=== PATIENT | female | born 1970 | race Asian ===

== ENCOUNTER 2020-01-27 01:23 | Emergency (ER) | payer MEDICAID ==
[~2020-01-27] VITALS: Ht 154.9 cm; Wt 72.6 kg
[2020-01-27 01:30] VITALS: BP 138/76
--- NOTE | 2020-01-27 01:37 | Emergency Room Report ---
History of Present Illness General Chief Complaint: Abdominal Pain Source: Patient Present Illness HPI This is a 49-year-old female with history of bipolar/anxiety and panic attack. She was recently in a psych facility and transferred to [facility] inpatient psychiatric facility. She presents with chief complaint of panic attack and abdominal pain. Said that she is unable to sleep for the last 2 days. Said that she wakes up frequently feeling she cannot breathe. She had the same problem and was admitted to the hospital a couple weeks ago. She also complained of epigastric pain and felt bloating. No fever chills but no nausea no vomiting. No diarrhea. Pain is 8 out of 10. Denies any trauma. No urinary complaint. Allergies: Coded Allergies: No Known Allergies (Unverified , 01/27/20) COVID-19 Screening Contact w/high risk pt: No Experienced COVID-19 symptoms?: No COVID-19 Testing performed PHLEBOTOMY MANAGER: No Patient History Past Medical History: see triage record, psych hx Past Surgical History: other Pertinent Family History: none Social History: Denies: smoking Last Menstrual Period: 12/2019 Now: No Immunizations: other Reviewed Nursing Documentation: PMH: Agreed; PSxH: Agreed Nursing Documentation-PMH Past Medical History: No History, Except For Review of Systems Eye: Denies: eye pain, blurred vision ENT: Denies: ear pain, nose congestion, throat swelling Respiratory: Reports: shortness of breath; Denies: cough Cardiovascular: Denies: chest pain, palpitations Gastrointestinal: Reports: abdominal pain; Denies: diarrhea, nausea, vomiting Musculoskeletal: Denies: back pain, joint pain Skin: Denies: rash Neurological: Denies: headache, numbness Endocrine: Denies: increased thirst, increased urine Hematologic/Lymphatic: Denies: easy bruising All Other Systems: negative except mentioned in HPI Physical Exam Vital Signs Date Time Temp Pulse Resp B/P (MAP) Pulse Ox O2 Delivery O2 Flow Rate FiO2 01/27/20 01:24 97.0 120 25 143/80 (101) 100 Room Air Vitals with tachycardia. Repeat heart rate 100 Sp02 EP Interpretation: reviewed, normal General Appearance: well appearing, no apparent distress, alert Head: normocephalic, atraumatic Eyes: bilateral eye PERRL, bilateral eye EOMI ENT: hearing grossly normal, normal pharynx Neck: full range of motion, supple, no meningismus Respiratory: chest non-tender, lungs clear, normal breath sounds Cardiovascular #1: regular rate, rhythm, no murmur Gastrointestinal: normal bowel sounds, no mass, no organomegaly, no bruit, non- distended, tenderness - Epigastric Musculoskeletal: back normal, normal range of motion, gait/station normal Psychiatric: anxious Medical Decision Making Diagnostic Impression: Primary Impression: Anxiety Additional Impressions: Abdominal pain Qualified Codes: R10.13 - Epigastric pain Pancreatitis, acute Qualified Codes: K85.90 - Acute pancreatitis without necrosis or infection, unspecified ER Course Patient presents with abdominal pain and appeared to be very anxious. She is sleeping comfortably after receiving Ativan. Abdominal exam is mostly epigastric area. She complained of bloating. When she is sleeping, when I palpate her abdomen she did not have any pain. When she woke up she still complained of pain. Her LFTs and lipase are normal. CT scan showed mild pancreatitis. No evidence of any acute abdomen or obstruction. Will discharge home. CT/MRI/US Diagnostic Results CT/MRI/US Diagnostic Results : Imaging Test Ordered: CT abdomen and pelvis Impression Read by radiologist. Mild edema and hazy stranding along the pancreatic head. Cardiomegaly. Last Vital Signs Date Time Temp Pulse Resp B/P (MAP) Pulse Ox O2 Delivery O2 Flow Rate FiO2 01/27/20 01:24 97.0 120 25 143/80 (101) 100 Room Air Status: improved Disposition: HOME, SELF-CARE Condition: Stable Scripts Ibuprofen* (MOTRIN*) 600 Mg Tablet 600 MG ORAL Q6H PRN for For Pain, #30 TAB 0 Refills Prov: Jose Weir MD 01/27/20 Lorazepam* (ATIVAN*) 1 Mg Tablet 1 MG ORAL THREE TIMES A DAY, #15 TAB Prov: Jose Weir MD 01/27/20 Patient Instructions: Abdominal Pain, Adult Additional Instructions: Follow-up with your doctor in 7 days. Return if symptoms worsen. Jose Weir MD Jan 27, 2020 01:37
[2020-01-27] MEDS ORDERED: LORazepam Inj 2mg/ml 1ml IV ONE (01:45)
[2020-01-27 02:03] LABS: BASOPHILS % (AUTO) 1.5 % (0.0-2.0); EOSINOPHILS % (AUTO) 1.7 % (0.0-3.0); HEMATOCRIT 42.8 % (37.0-47.0); HEMOGLOBIN 13.7 G/DL (12.0-16.0); LYMPHOCYTES % (AUTO) 36.3 % (20.0-45.0); MEAN CORPUSCULAR VOLUME 96 FL (80-99); MONOCYTES % (AUTO) 7.3 % (1.0-10.0); NEUTROPHILS % (AUTO) 53.2 % (45.0-75.0); PLATELET COUNT 275 K/UL (150-450); RED BLOOD COUNT 4.44 M/UL (4.20-5.40); RED CELL DISTRIBUTION WIDTH 12.9 % (11.6-14.8); WHITE BLOOD COUNT 8.1 K/UL (4.8-10.8)
[2020-01-27 02:16] LABS: ANION GAP 7 mmol/L (5-15); BLOOD UREA NITROGEN 19 mg/dL (7-18); CALCIUM 8.3 MG/DL (8.5-10.1); CARBON DIOXIDE 27 MMOL/L (21-32); CHLORIDE 105 MMOL/L (98-107); CREATININE 0.9 MG/DL (0.55-1.30); POTASSIUM 4.9 MMOL/L (3.5-5.1); SODIUM 139 MMOL/L (136-145)
[2020-01-27 02:20] LABS: ALANINE AMINOTRANSFERASE 36 U/L (12-78); ALBUMIN 3.5 G/DL (3.4-5.0); ALBUMIN/GLOBULIN RATIO 0.9 (1.0-2.7); ALKALINE PHOSPHATASE 60 U/L (46-116); ASPARTATE AMINO TRANSFERASE 24 U/L (15-37); BILIRUBIN,TOTAL 0.3 MG/DL (0.2-1.0)
--- NOTE | 2020-01-27 03:03 | Diagnostic Imaging Report ---
EXAM: CT Abdomen and Pelvis Without Intravenous Contrast CLINICAL HISTORY: ABD PAIN TECHNIQUE: Axial computed tomography images of the abdomen and pelvis without intravenous contrast. CTDI is 5.80 mGy and DLP is 304.00 mGy-cm. One or more of the following dose reduction techniques were used: automated exposure control, adjustment of the mA and/or kV according to patient size, use of iterative reconstruction technique. COMPARISON: No relevant prior studies available. FINDINGS: Lung bases: Subsegmental atelectasis in the lung bases. Pleural space: Small right pleural effusion. Heart: Moderate cardiomegaly. Small pericardial effusion. ABDOMEN: Liver: Partial resection changes in the right hepatic lobe. Mild periportal edema. Gallbladder and bile ducts: Cholecystectomy. No ductal dilation. Pancreas: Mild edema and hazy stranding along the pancreatic head. No ductal dilation. Spleen: Unremarkable. No splenomegaly. Adrenals: Unremarkable. No mass. Kidneys and ureters: Unremarkable. No obstructing stones. No hydronephrosis. Stomach and bowel: Unremarkable. No obstruction. No mucosal thickening. PELVIS: Appendix: No findings to suggest acute appendicitis. Bladder: Unremarkable. No stones. Reproductive: Unremarkable as visualized. ABDOMEN and PELVIS: Intraperitoneal space: Small amount of free fluid in the abdomen and pelvis. Mild mesenteric edema. No free air. Bones/joints: Degenerative changes in the spine, SI joints and hips. No acute fracture. No dislocation. Soft tissues: Mild anasarca. Vasculature: Mild calcification in the abdominal aorta. No abdominal aortic aneurysm. Lymph nodes: Unremarkable. No enlarged lymph nodes. IMPRESSION: 1. Findings which may represent mild acute interstitial pancreatitis. 2. Cardiomegaly. Small right pleural effusion. 3. Small amount of ascites.
[2020-01-27] MEDS ORDERED: ATIVAN1 MG ORAL (03:08)
[2020-01-27] MEDS ORDERED: IBUPROFEN600 M1 ORAL (03:08)
[2020-01-27 03:25] VITALS: BP 104/72
[2020-01-27] MEDS ORDERED: Lidocaine 2% Visc 15ml soln ORAL ONE (06:00)
[2020-01-27] MEDS ORDERED: Mylanta II UD 30ml ORAL ONE (06:00)
== END 2020-01-27 06:25 | disposition home or self-care (01) ==
LOC: EDBD 01:23 → EMR 01:41
DX: K85.90 Acute pancreatitis without necrosis or infection, unspecified (principal); F41.9 Anxiety disorder, unspecified; F41.0 Panic disorder [episodic paroxysmal anxiety]; I51.7 Cardiomegaly; Z90.49 Acquired absence of other specified parts of digestive tract; R60.1 Generalized edema; J90 Pleural effusion, not elsewhere classified; R18.8 Other ascites
CPT/HCPCS: 36415; 74176; 80053; 83690; 85025; 96361; 96374; 96375; J2405; J7030; Z7502; 99284

== ENCOUNTER 2020-02-08 04:12 | Emergency (ER) | payer MEDICAID ==
[~2020-02-08] VITALS: Ht 152.4 cm; Wt 68.0 kg
--- NOTE | 2020-02-08 04:11 | Emergency Room Report ---
History of Present Illness General Chief Complaint: General Complaint Present Illness HPI 49-year-old female with history of anxiety here with "anxiety." Patient says that she was at a psychiatric facility and felt highly anxious and felt that her heart start racing. Said "it was hard to breathe when I was feeling really anxious earlier." Patient says that on route to the emergency department in the ambulance she began to feel much better and now she does not have any symptoms whatsoever. Denies headaches, vision change, fevers, chills, chest pain, pal pitation, shortness of breath, back pain, abdominal pain, nausea, vomiting, diarrhea, dysuria. Allergies: Coded Allergies: No Known Allergies (Unverified , 01/27/20) COVID-19 Screening Contact w/high risk pt: No Experienced COVID-19 symptoms?: No COVID-19 Testing performed WEIGHER PRODUCTION: No Nursing Documentation-PMH Hx Asthma: Yes Review of Systems All Other Systems: negative except mentioned in HPI Physical Exam Vital Signs Date Time Temp Pulse Resp B/P (MAP) Pulse Ox O2 Delivery O2 Flow Rate FiO2 02/08/20 04:06 98.6 82 16 117/78 (91) 98 Room Air Sp02 EP Interpretation: reviewed, normal General Appearance: no apparent distress, alert, non-toxic Head: normocephalic, atraumatic Eyes: bilateral eye normal inspection, bilateral eye PERRL ENT: hearing grossly normal, normal pharynx, no angioedema, normal voice Neck: full range of motion, supple/symm/no masses Respiratory: chest non-tender, lungs clear, normal breath sounds, speaking full sentences Cardiovascular #1: regular rate, rhythm, no edema Cardiovascular #2: 2+ carotid (R), 2+ carotid (L), 2+ radial (R), 2+ radial (L), 2+ dorsalis pedis (R), 2+ dorsalis pedis (L) Gastrointestinal: normal bowel sounds, non tender, soft, non-distended, no guarding, no rebound Rectal: deferred Genitourinary: normal inspection, no CVA tenderness Musculoskeletal: back normal, normal range of motion, gait/station normal, non- tender Neurologic: alert, motor strength/tone normal, oriented x3, sensory intact, responsive, speech normal Psychiatric: judgement/insight normal, memory normal, mood/affect normal, no suicidal/homicidal ideation Lymphatic: no adenopathy Medical Decision Making Diagnostic Impression: Primary Impression: Anxiety ER Course EKG: NSR, no ischemia, intervals WNL. No ectopy. Rate 97 bpm Rhythm strip: patient monitored for arrhythmias - no malignant dysrhythmias, runs of PVCs, nor pauses noted 49-year-old female here with anxiety. Patient says "I do not know why I am here." She has no symptoms here in the emergency department whatsoever. She was given 1 mg of Ativan and said " I feel fine." Not having any chest pain or shortness of breath or palpitations at this time. She was monitored throughout her stay in the emergency department on the desk monitor and had no rhythm abnormalities. EKG normal. CBC, CMP, troponin all unremarkable. No evidence of heart failure on labs or physical examination. PERC negative. Patient discharged back to psychiatric facility. Last Vital Signs Date Time Temp Pulse Resp B/P (MAP) Pulse Ox O2 Delivery O2 Flow Rate FiO2 02/08/20 04:06 98.6 82 16 117/78 (91) 98 Room Air Scripts Lorazepam* (ATIVAN*) 1 Mg Tablet 1 MG ORAL BEDTIME, #5 TAB Prov: Joe Roberto M.D. 02/08/20 Joe Roberto M.D. Feb 08, 2020 04:11
[2020-02-08 04:12] VITALS: BP 108/74
[~2020-02-08 04:12] MED LIST: ATIVAN1 MG ORAL; IBUPROFEN600 M1 ORAL
--- NOTE | 2020-02-08 04:12 | NUR ---
ED Nurse Note: pt TRAVIS RA [id number] [facility]. Pt was c/o anxiety attack onset about 3 hours ago with chest pain. When speaking with pt she denies current chest pain. Pt reports having history of anxiety, bipolar disorder and CHF. Pt is AAOx4, breathing even and unlabored, sinus tachycardia HE 105-110, other vital signs stable.
[2020-02-08] MEDS ORDERED: DOCUSATE SODIU250 MG ORAL (04:22)
[2020-02-08] MEDS ORDERED: ESCITALOPRAM OX10 MG ORAL (04:23)
[2020-02-08] MEDS ORDERED: LEVOTHYROXINE100 MC1 IV (04:24)
[2020-02-08] MEDS ORDERED: LORAZEPAM2 MG/1 M4 ORAL (04:27)
[2020-02-08] MEDS ORDERED: FUROSEMIDE20 M1 ORAL (04:28)
[2020-02-08] MEDS ORDERED: ALBUTEROL2.5 MG/3 M INH (04:28)
[2020-02-08] MEDS ORDERED: LORazepam Inj 2mg/ml 1ml IV ONE (04:30)
[2020-02-08] MEDS ORDERED: NICOTINE PATCH1 EAC5 TD (04:31)
--- NOTE | 2020-02-08 04:33 | NUR ---
ED Nurse Note: blood collected and sent to lab
--- NOTE | 2020-02-08 04:35 | NUR ---
ED Nurse Note: xray at bedside
--- NOTE | 2020-02-08 04:45 | NUR ---
ED Nurse Note: urine collected and sent to lab
[2020-02-08 05:23] LABS: APPEARANCE,URINE CLEAR; BILIRUBIN, URINE NEGATIVE (NEGATIVE); COLOR,URINE PALE YELLOW; GLUCOSE, URINE (UA) NEGATIVE (NEGATIVE); KETONES,URINE NEGATIVE (NEGATIVE); LEUKOCYTE ESTERASE ,URINE NEGATIVE (NEGATIVE); NITRITE,URINE NEGATIVE (NEGATIVE); PH,URINE 6 (4.5-8.0); PROTEIN,URINE NEGATIVE (NEGATIVE); UROBILINOGEN,URINE NORMAL MG/DL (0.0-1.0)
[2020-02-08 05:29] LABS: EOSINOPHILS % (AUTO) 5.7 % (0.0-3.0); HEMATOCRIT 42.2 % (37.0-47.0); HEMOGLOBIN 14.4 G/DL (12.0-16.0); LYMPHOCYTES % (AUTO) 32.9 % (20.0-45.0); MEAN CORPUSCULAR VOLUME 88 FL (80-99); MONOCYTES % (AUTO) 10.7 % (1.0-10.0); NEUTROPHILS % (AUTO) 48.7 % (45.0-75.0); PLATELET COUNT 242 K/UL (150-450); RED BLOOD COUNT 4.78 M/UL (4.20-5.40); WHITE BLOOD COUNT 6.6 K/UL (4.8-10.8)
[2020-02-08] MEDS ORDERED: ATIVAN1 MG ORAL (05:34)
[2020-02-08 05:42] LABS: ANION GAP 6 mmol/L (5-15); BLOOD UREA NITROGEN 16 mg/dL (7-18); CALCIUM 8.6 MG/DL (8.5-10.1); CARBON DIOXIDE 27 MMOL/L (21-32); CHLORIDE 104 MMOL/L (98-107); CREATININE 0.8 MG/DL (0.55-1.30); POTASSIUM 4.3 MMOL/L (3.5-5.1); SODIUM 137 MMOL/L (136-145)
[2020-02-08 05:52] LABS: ALANINE AMINOTRANSFERASE 17 U/L (12-78); ALBUMIN 3.7 G/DL (3.4-5.0); ALBUMIN/GLOBULIN RATIO 0.9 (1.0-2.7); ALKALINE PHOSPHATASE 60 U/L (46-116); ASPARTATE AMINO TRANSFERASE 16 U/L (15-37); BILIRUBIN,TOTAL 0.3 MG/DL (0.2-1.0)
--- NOTE | 2020-02-08 06:00 | Diagnostic Imaging Report ---
EXAM: XR Chest, 1 View CLINICAL HISTORY: 49-year-old female with history of anxiety here with "anxiety." Patient says that she was at a psychiatric facility and felt highly anxious and felt that her heart start racing. Said "it was hard to breathe when I was feeling really anxious earlier." Patient says that on route to the emergency department in the ambulance she began to feel much better and now she does not have any symptoms whatsoever. Denies headaches, vision change, fevers, chills, chest pain, palpitation, shortness of breath, back pain, abdominal pain, nausea, vomiting, diarrhea, dysuria. Allergies: TECHNIQUE: Frontal view of the chest. COMPARISON: No relevant prior studies available. FINDINGS: Lungs: Unremarkable. No consolidation. Pleural space: Unremarkable. No pneumothorax. Heart: Heart size appears enlarged. Mediastinum: Unremarkable. Bones/joints: Unremarkable. IMPRESSION: Heart size appears enlarged.
--- NOTE | 2020-02-08 07:01 | NUR ---
ED Nurse Note: Received report from JORDAN Pathak. Patient is sleeping, VSS at this time.
--- NOTE | 2020-02-08 07:01 | NUR ---
HAND-OFF: Report given to JORDAN Gunderson.
--- NOTE | 2020-02-08 09:15 | NUR ---
ER DISCHARGE NOTE: Patient is cleared to be discharged per ERMD, pt is aox4, on room air, with stable vital signs. pt was given dc and prescription instructions, pt was able to verbalize understanding, pt id band and iv site removed without complications. pt is able to ambulate with steady gait. pt took all belongings. patient was transfered back to the facility
[2020-02-08 09:50] VITALS: BP 112/76
== END 2020-02-08 16:10 | disposition home or self-care (01) ==
LOC: EDBD 04:12 → EMR 04:27
DX: F41.9 Anxiety disorder, unspecified (principal); J45.909 Unspecified asthma, uncomplicated
CPT/HCPCS: 36415; 71045; 80053; 80307; 81003; 83880; 84484; 85025; 93005; 96374; G0480; G0481; Z7502; 99284